=== PATIENT | female | born 1970 | race Two or more races ===

== ENCOUNTER → 2024-10-21 | Outpatient (CLI) | payer MEDICAID, SELFPAY ==
--- NOTE | 2024-10-21 07:43 | XR_ITS ---
Examination: Diagnostic digital mammography, unilateral, left Computer aided detection 3-D breast Tomosynthesis, unilateral Date and time of exam: October 21, 2024 0753 hours INDICATIONS: Mammogram May 17, 2024 grouped microcalcifications 12:00 position left breast Technique: Nonmagnified MLO, CC views of the left breast have been obtained, reconstructed from 3-D Tomosynthesis images. R2 computer aided detection program utilized for evaluation of suspicious masses and/or abnormal calcifications. 3-D Tomosynthesis images obtained. Findings: The breast is heterogeneously dense, which may obscure small masses Grouped suspicious microcalcifications confirmed 12:00 position left breast Impression: BI-RADS category 4: Suspicious for malignancy Suspicious microcalcifications confirmed 12:00 position left breast, biopsy is needed to exclude breast carcinoma, these calcifications are amenable to stereotactic breast biopsy for diagnosis
--- NOTE | 2024-10-21 08:00 | XR_ITS ---
Examination: Breast ultrasound, unilateral, left complete Date and time of exam: October 21, 2024 0803 hours INDICATIONS: Mammogram May 27, 2024 group microcalcifications 12:00 position left breast Technique: Real-time chandler scale ultrasonographic imaging performed left breast including all 4 quadrants as well as nipple retroareolar and axillary region. Findings: No cystic or solid mass IMPRESSION: BI-RADS Category 2: Benign findings
== END | disposition home or self-care (01) ==
LOC: CDIM 07:35
PROVIDERS: PCP Family Medicine; Referring Provider Family Medicine; Visit Provider Family Medicine
DX: R92.342 Mammographic extreme density, left breast (principal); R92.0 Mammographic microcalcification found on diagnostic imaging of breast
CPT/HCPCS: 76641; 77061; 77065; G0279

== ENCOUNTER → 2024-11-27 | Outpatient (CLI) | payer MEDICAID, SELFPAY ==
--- NOTE | 2024-11-27 08:45 | XR_ITS ---
Examination: Breast ultrasound, unilateral, right complete Date and time of exam: 07/27/2025 0846 hours INDICATIONS: Patient states palpable lump right breast one year Technique: Real-time chandler scale ultrasonographic imaging performed right breast including all 4 quadrants as well as nipple retroareolar and axillary region. Findings: No cystic or solid mass IMPRESSION: BI-RADS Category 1: Negative study
--- NOTE | 2024-11-27 09:15 | XR_ITS ---
Examination: Diagnostic digital mammography, unilateral, right Computer aided detection 3-D breast Tomosynthesis, unilateral Date and time of exam: November 27, 2024 0909 hours INDICATIONS: Patient states feels a lump in the right breast near the sternum Technique: Nonmagnified MLO, CC views of the right breast have been obtained, reconstructed from 3-D Tomosynthesis images. R2 computer aided detection program utilized for evaluation of suspicious masses and/or abnormal calcifications. 3-D Tomosynthesis images obtained. Findings: The breast is heterogeneously dense, which may obscure small masses No suspicious mass noted Impression: BI-RADS category 2: Benign findings Recommend yearly follow-up mammography If palpable lump persists, recommend 3 month follow-up right breast sonography in 6 month follow-up mammography
== END | disposition home or self-care (01) ==
LOC: CDIM 08:31
PROVIDERS: PCP Family Medicine; Referring Provider Family Medicine; Visit Provider Family Medicine
DX: R92.321 Mammographic fibroglandular density, right breast (principal)
CPT/HCPCS: 76641; 77061; 77065; G0279